=== PATIENT | female | born 1955 | race Caucasian/White ===

== ENCOUNTER → 2016-07-09 | Outpatient (CLI) | payer BC ==
[~2016-07-09] MED LIST: ASPEC325 PO; FLUO20CA35 PO; FRRG PO; IRON PO; LISI-461 PO; MULT-506 PO; MULT-580 PO; PRD/1 PO; PRLSR20 PO; VITAMIN B12 INJ
--- NOTE | 2016-07-09 16:32 | MAMMOGRAPHY REPORT ---
BILATERAL DIGITAL SCREENING MAMMOGRAM TOMOSYNTHESIS WITH CAD: 07/09/2016 CLINICAL HISTORY: Routine screening. Patient has no complaints. TECHNIQUE: Breast tomosynthesis in addition to standard 2D mammography was performed. Current study was also evaluated with a Computer Aided Detection (CAD) system. COMPARISON: Comparison is made to exams dated: 07/06/2015 mammogram, 03/23/2012 mammogram, 03/22/2011 mammogram, 02/09/2010 mammogram - [facility], 02/06/2009, and 02/03/2008. BREAST COMPOSITION: There are scattered areas of fibroglandular density in both breasts. FINDINGS: There are post surgical changes in the breasts, with scattered stable punctate microcalcif ications and coarse benign rim calcifications. No new suspicious mass, architectural distortion or cluster of microcalcifications is seen. IMPRESSION: ACR BI-RADS CATEGORY 1: NEGATIVE There is no mammographic evidence of malignancy. A 1 year screening mammogram is recommended. The p atient will receive written notification of the results. Approximately 10% of breast cancers are not detected with mammography. A negative mammographic repor t should not delay biopsy if a clinically suggestive mass is present. Tiffanie Ireland M.D. ay/:07/09/2016 15:18:30 Document Reviewer: Rowan ARGUETA(Viji)(Rajni), [facility] letter sent: Normal 1/2 BI-RADS Code: ACR BI-RADS Category 1: Negative
== END | disposition home or self-care (01) ==
LOC: C.MAMM 10:46
PROVIDERS: ATTEND Internal Medicine
DX: Z12.31 Encounter for screening mammogram for malignant neoplasm of breast (principal)

== ENCOUNTER → 2016-08-05 | Outpatient (CLI) | payer BC, OTHER ==
[2016-08-05 14:38] LABS: BASO % 1.2 %; BASO ABS # 0.05 K/uL (0-0.2); COMPLETE YES; EOS % 4.2 %; HEMATOCRIT 39.2 % (37-47); IG% 0.2 %; LYMPH % 40.3 %; LYMPH ABS # 1.62 K/uL (1.2-3.4); MEAN CELL VOLUME 91.2 fL (80-100); MEAN CORPUSCULAR HEMOGLOBIN 29.3 pg (25-34); MEAN CORPUSCULAR HGB CONC 32.1 g/dl (32-36); MEAN PLATELET VOLUME 10.4 fL (7.4-10.4); MONO % 12.2 %; NEUT % 41.9 %; PLATELET COUNT 299 K/uL (130-400); WHITE BLOOD COUNT 4.02 K/uL (4.8-10.8)
[2016-08-05 15:20] LABS: ESTIMATED AVERAGE GLUCOSE 123 mg/dl; HA1C FLAG Normal (Normal)
[2016-08-05 17:20] LABS: BLOOD UREA NITROGEN 13 mg/dl (7-18); BUN/CREATININE RATIO 19.7 (10-20); CALCIUM 9.1 mg/dl (8.5-10.1); CARBON DIOXIDE 26 mmol/L (21-32); CHLORIDE 107 mmol/L (98-107); CREATININE 0.65 mg/dl (0.60-1.20); GLUCOSE 85 mg/dl (70-99); POTASSIUM 3.5 mmol/L (3.5-5.1); SODIUM 144 mmol/L (136-145)
[2016-08-05 17:33] LABS: ALB/GLOB RATIO 1.2 (0.9-2); ALKALINE PHOSPHATASE 66 U/L (45-117); ALT/SGPT 23 U/L (12-78); AST/SGOT 14 U/L (15-37); CHOLESTEROL 200 mg/dl (0-200); CHOLESTEROL/HDL RATIO 2.8; HDL CHOLESTEROL 72 mg/dl; TRIGLYCERIDES 124 mg/dl (0-150); VERY LOW DENSITY LIPOPROT CALC 25 mg/dl
== END | disposition home or self-care (01) ==
LOC: C.LABSPEC 12:17
PROVIDERS: ATTEND Internal Medicine
DX: M35.3 Polymyalgia rheumatica (principal); R73.9 Hyperglycemia, unspecified; I10 Essential (primary) hypertension; E78.5 Hyperlipidemia, unspecified; R53.83 Other fatigue

== ENCOUNTER → 2017-01-06 | Outpatient (CLI) | payer BC ==
[2017-01-06 14:42] LABS: BASO % 1.5 %; BASO ABS # 0.07 K/uL (0-0.2); COMPLETE YES; EOS % 4.9 %; HEMATOCRIT 41.2 % (37-47); IG% 0.2 %; LYMPH % 38.6 %; LYMPH ABS # 1.83 K/uL (1.2-3.4); MEAN CELL VOLUME 94.7 fL (80-100); MEAN CORPUSCULAR HGB CONC 32.8 g/dl (32-36); MEAN PLATELET VOLUME 10.6 fL (7.4-10.4); MONO % 9.3 %; NEUT % 45.5 %; PLATELET COUNT 274 K/uL (130-400); RED BLOOD COUNT 4.35 M/uL (4.2-5.4); WHITE BLOOD COUNT 4.74 K/uL (4.8-10.8)
[2017-01-06 14:55] LABS: ALT/SGPT 23 U/L (12-78); AST/SGOT 19 U/L (15-37); BLOOD UREA NITROGEN 10 mg/dl (7-18); BUN/CREATININE RATIO 16.9 (10-20); CALCIUM 9.1 mg/dl (8.5-10.1); CARBON DIOXIDE 26 mmol/L (21-32); CHLORIDE 110 mmol/L (98-107); CREATININE 0.61 mg/dl (0.60-1.20); GLUCOSE 87 mg/dl (70-99); POTASSIUM 3.8 mmol/L (3.5-5.1); SODIUM 144 mmol/L (136-145)
[2017-01-06 14:59] LABS: ALB/GLOB RATIO 1.1 (0.9-2); ALKALINE PHOSPHATASE 70 U/L (45-117); CHOLESTEROL 225 mg/dl (0-200); CHOLESTEROL/HDL RATIO 3.8; HDL CHOLESTEROL 59 mg/dl; TRIGLYCERIDES 155 mg/dl (0-150); VERY LOW DENSITY LIPOPROT CALC 31 mg/dl
== END | disposition home or self-care (01) ==
LOC: C.LABSPEC 11:15
PROVIDERS: ATTEND Internal Medicine
DX: I10 Essential (primary) hypertension (principal); E78.5 Hyperlipidemia, unspecified; M35.3 Polymyalgia rheumatica

== ENCOUNTER 2021-04-28 08:05 | Inpatient (IN) ==
[2021-04-28] MEDS ORDERED: ONDANSETRON INJ 2 MG/ML 2 ML VIAL IV STA (08:27)
[2021-04-28] MEDS ORDERED: HYDROmorphone INJ 0.5 MG/0.5 ML SYR IV STA (08:27)
--- NOTE | 2021-04-28 08:31 | Emergency Department Note ---
Impression & Plan Pulmonary embolism, Pulmonary infarction, Aortic stenosis ED Provider Note Name: POPPY SINGH Age: 65 Sex: F Arrives Via: Walk-In Informant: Patient, Daughter ED Provider: Segundo Potter MD Chief Complaint: Chest pain Impression: As Per Impressions Above Medical Decision Makin yr old female with history HTN, GERD, anxiety/depression, essential tremor arrives for evaluation of chest pain. Diagnosed with severe last week during heart cath with no significant CAD. She is uncomfortable appearing with pain from chest to right upper arm. EKG OK. CXR obtained and some atelectasis like findings bilaterally. Labs with significantly elevated Dimer. Given just had cath and 24 hours of symptoms seems unlikely ACS. Patient with right chest pain, sob, elevated dimer and recent catheterization. Given this rule out dissection indicated in addition to PE rule out. CT reveals acute PE with infarction without dissection. She is a bit hypoxic with small dose narcotics. Given history and findings I did consult hospitalist for there input whether hospitalization vs outpatient management. Prior Medical Record and Triage/Nursing Notes reviewed by Me Additional history obtained from chart Differentials:Reactive airway disease, pneumonia, pneumothorax, COPD, CHF, infections, cardiac ischemia, pulmonary embolism, musculoskeletal, gastrointestinal, as well as other pathologies. Vital Signs: reviewed and remarkable for HTN Interventions: saline lock, dilaudid 0.5mg iv Labs:Reviewed and remarkable for elevated dimer Imaging:See Below EKG:Per My Interpretation: Indication Chest pain: NSR 68 bpm, qtc 412. No Ectopy. No Ischemia. Compared to EKG 09/18/15, no significant changes. Cardiac/Tele Monitoring: Cardiac Monitoring: An Order was placed for continuous cardiac monitoring. The monitor shows a rate of 60 with a normal sinus rhythm. Consults:Dr Tanya ECHEVERRIA Hospitalist Plan: Disposition:Hospitalization. Condition: Good History of Present Illness:65 yr old female arrives for evaluation of chest pain. Patient notes history of aortic stenosis and recent cath revealing mild CAD without need for stenting. She is in process of setting up valve replacement. The last few months she has had significant issues with shortness of breath with exertion but otherwise denies significant symptoms. Yesterday morning she awoke with substernal upper chest pain. Gradually worsening. Radiates to back and right upper arm. Tylenol taken without relief. Exertion makes worse, rest makes better. No syncope, headache, neck pain, nausea, vomiting, fevers, chills, abdominal pain, back pain, urinary/bowel symptoms, leg swelling, nor other symptoms. This pain has never occured before. No history of CAD. No history smoking. No falls, trauma, injuries. Notes some bruising right forearm from heart cath last week. ROS: See above HPI for pertinent positives & negatives. A total of 10 systems reviewed and were otherwise negative. Past Medical History:See Below Past Surgical History:See Below Family History:See Below Social History:See Below Home Medications:See Below Allergies:See Below Vitals:Blood Pressure: 142/68, Pulse 67, RR 20, T 37.3C, O2 98% on RA Physical Exam: GENERAL: Patient is anxious/uncomfortable appearing and in mild distress. EYES: No scleral icterus, unremarkable pupils. ENT: Mucous membranes moist, no nasal congestion. NECK: No masses appreciated, nomeningismus, trachea is midline. RESPIRATORY: No dyspnea. Clear to auscultation and equal bilaterally. No wheeze, no rhonchi. CARDIOVASCULAR: Regular rate and rhythm.No rubs, gallops appreciated. S ystolic murmur GASTROINTESTINAL: Abdomen soft, non-tender, no peritonitis.Bowel sounds positive.No masses appreciated. BACK: No midline tenderness, no CVA tenderness EXTREMITIES: Normal motion all extremities, no cyanosis, no edema. NEUROLOGIC: Alert and oriented, no acute motor or sensory deficits, no focal weakness, cranial nerves grossly intact. SKIN: No rash, no jaundice, no diaphoresis. PSYCH: Appropriate GCS: 15 ED Course: Times/Reassessments: Much improved pain with IV pain meds. Breathing comfortably, agreeable to hospitalist evaluation Segundo Potter MD Past Med/Surg History Medical History (Updated 04/28/21 @ 11:45 by Segundo Potter MD) Anxiety Cardiac murmur Depression GERD (gastroesophageal reflux disease) Hypertension Macular degeneration RT EYE (LIMITED VISION) Osteoarthritis Urinary urgency Surgical History H/O gastric bypass History of anesthesia reaction DIFFICULTY BREATHING WITH TUBAL LIGATION "REQUIRED EPINEPHRINE" History of appendectomy History of bilateral breast reduction surgery History of bilateral tubal ligation History of bunionectomy RT/LEFT AND HAMMER TOE REPAIR History of cataract surgery RT History of colonoscopy History of tooth extraction History of total knee replacement RT/LEFT Family History Mother Family history of diabetes mellitus Father Family history of diabetes mellitus Sister Family history of diabetes mellitus Brother Family history of diabetes mellitus Grandmother Family history of diabetes mellitus Grandfather Family history of diabetes mellitus Social History Smoking Status: Never smoker Second Hand Exposure: Yes (Sister smoked many years ago.); Do You Dip or Chew Tobacco: No; Tobacco Cessation Education Requested by Patient: No Hx Alcohol Use: No Hx Substance Use: No Preferred Language: Georgian Communication Ability: Effective Cardiology Coordinator Required: No Beliefs That Will Affect Care: Christian Christian Beliefs: Baptism Current Living Situation: Alone Other Information That Helps Us Care for You: No Feels Safe at Home: Yes Safety Concerns: Feels Safe At This Time Assistive Devices: Glasses Allergies Allergies Allergy/AdvReac Type Severity Reaction Status Date / Time acetone Allergy Mild whole body Verified 04/28/21 08:52 rash adhesive Allergy Mild RASH, Verified 04/28/21 08:52 BLISTERS FROM THICK TAPE,BANDAIDS clarithromycin Allergy Mild GI Verified 04/28/21 08:52 SYMPTOMS,BLACKED OUT,DIARRHEA phenol Allergy Mild whole body Verified 04/28/21 08:52 rash resorcinol Allergy Mild whole body Verified 04/28/21 08:52 rash Basic Fuchsin Allergy Mild whole body Uncoded 04/28/21 08:52 rash CHEAP METALS AdvReac Mild ITCH Uncoded 04/28/21 08:52 Home Meds Home Medications Medication Instructions Recorded Confirmed biotin 5,000 mcg disintegrating 5,000 mcg PO QAM 05/26/18 04/28/21 tablet multivitamin (Daily Multi-Vitamin) 1 tab PO QAM 05/26/18 04/28/21 prednisone 5 mg tablet 5 mg PO QAM 05/26/18 04/28/21 fluoxetine 20 mg capsule (Prozac) 40 mg PO QAM cap 11/16/20 04/28/21 lisinopril 10 mg tablet 10 mg PO BID tab 11/16/20 04/28/21 omeprazole 20 mg tablet,delayed 20 mg PO QDL 11/16/20 04/28/21 release aspirin 81 mg tablet,delayed 81 mg PO QAM 04/28/21 04/28/21 release (Adult Aspirin Regimen) oxybutynin chloride 5 mg tablet 5 mg PO QDL 04/28/21 04/28/21 propranolol 60 mg capsule,24 60 mg PO QDL 04/28/21 04/28/21 hr,extended release Results & Data (ED) Vital Signs Vital Signs - 24 hr 04/28/21 08:05 04/28/21 08:17 04/28/21 08:21 Temperature 37.3 C Temperature Source Oral Pulse Rate 70 67 Pulse Rate [Finger] Pulse Rate from SpO2 Sensor Pulse Rhythm Regular Pulse Rhythm [Finger] Pulse Strength Normal Pulse Strength [Finger] Respiratory Rate 20 20 Respiratory Effort / Characteristics Non-Labored Spontaneous Respiratory Depth Normal Respiratory Pattern Regular Blood Pressure 142/84 H Blood Pressure [Left Arm] Blood Pressure Mean 103 Blood Pressure Mean [Left Arm] Blood Pressure Position Sitting Blood Pressure Position [Left Arm] Pulse Oximetry 98 94 Oxygen Delivery Method Room Air Room Air Oxygen Flow Rate Sepsis Recent Fever Within 48 Hours No Sepsis New/Unexplained Change in Mental Status No Sepsis Action Taken by Nursing No Action Required 04/28/21 08:30 04/28/21 09:00 04/28/21 09:30 Temperature Temperature Source Pulse Rate 67 60 57 L Pulse Rate [Finger] Pulse Rate from SpO2 Sensor 61 57 L Pulse Rhythm Pulse Rhythm [Finger] Pulse Strength Pulse Strength [Finger] Respiratory Rate 19 17 19 Respiratory Effort / Characteristics Respiratory Depth Respiratory Pattern Blood Pressure 197/108 H 142/82 H 152/72 H Blood Pressure [Left Arm] Blood Pressure Mean 137 102 98 Blood Pressure Mean [Left Arm] Blood Pressure Position Blood Pressure Position [Left Arm] Pulse Oximetry 97 96 Oxygen Delivery Method Oxygen Flow Rate Sepsis Recent Fever Within 48 Hours Sepsis New/Unexplained Change in Mental Status Sepsis Action Taken by Nursing 04/28/21 10:00 04/28/21 10:32 04/28/21 11:00 Temperature Temperature Source Pulse Rate 56 L 70 59 L Pulse Rate [Finger] Pulse Rate from SpO2 Sensor 59 L 60 Pulse Rhythm Pulse Rhythm [Finger] Pulse Strength Pulse Strength [Finger] Respiratory Rate 16 21 17 Respiratory Effort / Characteristics Respiratory Depth Respiratory Pattern Blood Pressure 130/54 L 133/63 Blood Pressure [Left Arm] Blood Pressure Mean 79 86 Blood Pressure Mean [Left Arm] Blood Pressure Position Blood Pressure Position [Left Arm] Pulse Oximetry 96 98 Oxygen Delivery Method Oxygen Flow Rate Sepsis Recent Fever Within 48 Hours Sepsis New/Unexplained Change in Mental Status Sepsis Action Taken by Nursing 04/28/21 11:30 04/28/21 12:00 04/28/21 12:53 Temperature Temperature Source Pulse Rate 57 L 57 L 61 Pulse Rate [Finger] Pulse Rate from SpO2 Sensor Pulse Rhythm Pulse Rhythm [Finger] Pulse Strength Pulse Strength [Finger] Respiratory Rate 16 16 26 H Respiratory Effort / Characteristics Respiratory Depth Respiratory Pattern Blood Pressure 119/57 L 119/60 127/67 Blood Pressure [Left Arm] Blood Pressure Mean 77 79 87 Blood Pressure Mean [Left Arm] Blood Pressure Position Blood Pressure Position [Left Arm] Pulse Oximetry 98 Oxygen Delivery Method Oxygen Flow Rate Sepsis Recent Fever Within 48 Hours Sepsis New/Unexplained Change in Mental Status Sepsis Action Taken by Nursing 04/28/21 13:47 04/28/21 14:00 Temperature 36.9 C Temperature Source Oral Pulse Rate 52 L Pulse Rate [Finger] 53 L Pulse Rate from SpO2 Sensor Pulse Rhythm Pulse Rhythm [Finger] Regular Pulse Strength Pulse Strength [Finger] Normal Respiratory Rate 16 18 Respiratory Effort / Characteristics SOB on Exertion Respiratory Depth Normal Respiratory Pattern Regular Blood Pressure 139/59 L Blood Pressure [Left Arm] 156/74 H Blood Pressure Mean Blood Pressure Mean [Left Arm] 101 Blood Pressure Position Blood Pressure Position [Left Arm] Semi-fowlers Pulse Oximetry 95 97 Oxygen Delivery Method Nasal Cannula Nasal Cannula Oxygen Flow Rate 2 2 Sepsis Recent Fever Within 48 Hours Sepsis New/Unexplained Change in Mental Status Sepsis Action Taken by Nursing Laboratory Data Result diagrams: 04/28/21 08:22 04/28/21 08:22 Lab Results 04/28/21 04/28/21 04/28/21 Range/Units 08:22 08:22 08:22 WBC 9.05 (4.8-10.8) K/uL RBC 4.18 L (4.2-5.4) M/uL Hgb 13.3 (12.0-16.0) g/dL Hct 39.4 (37-47) % MCV 94.3 (80-100) fL MCH 31.8 (25-34) pg MCHC 33.8 (32-36) g/dL RDW Std Deviation 45.8 (36.4-46.3) fL RDW Coeff of Arun 13.3 (11.5-14.5) % Plt Count 278 (130-400) K/uL MPV 10.0 (7.4-10.4) fL Immature Gran % (Auto) 0.0 % Neut % (Auto) 68.8 % Lymph % (Auto) 14.6 % [place] % (Auto) 14.0 % Eos % (Auto) 2.2 % Baso % (Auto) 0.4 % Neut # (Auto) 6.22 (1.4-6.5) K/uL Lymph # (Auto) 1.32 (1.2-3.4) K/uL [place] # (Auto) 1.27 H (0.11-0.59) K/uL Eos # (Auto) 0.20 (0-0.5) K/uL Baso # (Auto) 0.04 (0-0.2) K/uL Immature Gran # (Auto) 0.00 (0.00-0.02) K/uL PT (9.0-12.0) Seconds INR (0.9-1.1) APTT (21.0-31.0) Seconds PTT Ratio D-Dimer 2500 H* (0-500) ug/L FEU Sodium 138 (136-145) mmol/L Potassium 4.1 (3.5-5.1) mmol/L Chloride 104 (98-107) mmol/L Carbon Dioxide 28 (21-32) mmol/L Anion Gap 6.0 (3-11) BUN 9 (7-18) mg/dl Creatinine 0.59 L (0.6-1.2) mg/dl Est Cr Clr Drug Dosing 104.3 ml/min Est GFR ( Amer) 111.5 ml/min Est GFR (Non-Af Amer) 96.2 ml/min BUN/Creatinine Ratio 15.4 (10-20) Glucose 104 H (70-99) mg/dl Calcium 9.2 (8.5-10.1) mg/dl Magnesium 2.2 (1.8-2.4) mg/dl Total Bilirubin 1.2 H (0.2-1) mg/dl Direct Bilirubin 0.3 H (0-0.2) mg/dl AST 12 L (15-37) U/L ALT 17 (12-78) U/L Alkaline Phosphatase 72 (45-117) U/L Troponin I < 0.015 (0-0.045) ng/ml NT-Pro-B Natriuret Pep 463 (0-900) pg/ml Total Protein 7.3 (6.4-8.2) gm/dl Albumin 3.2 L (3.4-5.0) gm/dl Lipase 62 L (73-393) U/L COVID-19 Eval Order SARS-CoV-2 (PCR) (Negative) 04/28/21 04/28/21 04/28/21 Range/Units 08:22 08:53 08:53 WBC (4.8-10.8) K/uL RBC (4.2-5.4) M/uL Hgb (12.0-16.0) g/dL Hct (37-47) % MCV (80-100) fL MCH (25-34) pg MCHC (32-36) g/dL RDW Std Deviation (36.4-46.3) fL RDW Coeff of Arun (11.5-14.5) % Plt Count (130-400) K/uL MPV (7.4-10.4) fL Immature Gran % (Auto) % Neut % (Auto) % Lymph % (Auto) % [place] % (Auto) % Eos % (Auto) % Baso % (Auto) % Neut # (Auto) (1.4-6.5) K/uL Lymph # (Auto) (1.2-3.4) K/uL [place] # (Auto) (0.11-0.59) K/uL Eos # (Auto) (0-0.5) K/uL Baso # (Auto) (0-0.2) K/uL Immature Gran # (Auto) (0.00-0.02) K/uL PT 10.6 (9.0-12.0) Seconds INR 1.0 (0.9-1.1) APTT 28.2 (21.0-31.0) Seconds PTT Ratio 1.1 D-Dimer (0-500) ug/L FEU Sodium (136-145) mmol/L Potassium (3.5-5.1) mmol/L Chloride (98-107) mmol/L Carbon Dioxide (21-32) mmol/L Anion Gap (3-11) BUN (7-18) mg/dl Creatinine (0.6-1.2) mg/dl Est Cr Clr Drug Dosing ml/min Est GFR ( Amer) ml/min Est GFR (Non-Af Amer) ml/min BUN/Creatinine Ratio (10-20) Glucose (70-99) mg/dl Calcium (8.5-10.1) mg/dl Magnesium (1.8-2.4) mg/dl Total Bilirubin (0.2-1) mg/dl Direct Bilirubin (0-0.2) mg/dl AST (15-37) U/L ALT (12-78) U/L Alkaline Phosphatase (45-117) U/L Troponin I (0-0.045) ng/ml NT-Pro-B Natriuret Pep (0-900) pg/ml Total Protein (6.4-8.2) gm/dl Albumin (3.4-5.0) gm/dl Lipase (73-393) U/L COVID-19 Eval Order Covid19 at [facility] SARS-CoV-2 (PCR) NEGATIVE (Negative) Administered Medications Acetaminophen (Acetaminophen 325 Mg Tab) 650 mg PO Q6H DAFNE Stop: 05/28/21 13:59 Last Admin: 04/28/21 13:28 Dose: 650 mg Documented by: [id number] Enoxaparin Sodium (Enoxaparin 150 Mg/Ml Syr) 141 mg SQ Q24H DAFNE Stop: 05/28/21 12:29 Last Admin: 04/28/21 13:33 Dose: 141 mg Documented by: [id number] Lidocaine (Lidocaine 5% 1 Patch) 1 patch TD QAM DAFNE Stop: 05/28/21 13:29 Last Admin: 04/28/21 13:41 Dose: 1 patch Documented by: [id number] Discontinued Medications Hydromorphone HCl (Hydromorphone Inj 0.5 Mg/0.5 Ml Syr) 0.5 mg IV NOW STA Stop: 04/28/21 08:28 Last Admin: 04/28/21 08:32 Dose: 0.5 mg Documented by: [id number] Ioversol (Optiray 320 125ml) 118 ml IV ONCE ONE Stop: 04/28/21 10:26 Last Admin: 04/28/21 10:31 Dose: 118 ml Documented by: [id number] Ondansetron HCl (Ondansetron Inj 2 Mg/Ml 2 Ml Vial) 4 mg IV NOW STA Stop: 04/28/21 08:28 Last Admin: 04/28/21 08:32 Dose: 4 mg Documented by: [id number] Imaging Data Radiologist's Impression: Chest X-Ray 04/28/21 08:27 XR chest 1V portable CLINICAL HISTORY: Atypical chest pain. COMPARISON STUDY: Chest radiograph October 06, 2020. FINDINGS: Lung volumes are mildly diminished. There is no pneumothorax or pleural effusion. Mild left basilar opacity is present. Linear bilateral opacities are noted. These favor atelectasis. Cardiac size is normal. There is no evidence for pulmonary edema. Linear left midlung opacity is also noted. IMPRESSION: 1. Mild left basilar opacity which may reflect an infectious process or atelectasis. Additional bilateral linear opacities favor atelectasis. 2. No evidence for pulmonary edema. ACT 112: Negative or not required by law. Electronically signed by: Cholo Barrientos M.D. 04/28/2021 9:26 AM Chest CTA 04/28/21 09:15 CT ANGIOGRAPHY OF THE CHEST DISSECTION PROTOCOL CLINICAL HISTORY: Chest pain radiating to right shoulder status post ca theterization. COMPARISON STUDY: Chest radiograph October 06, 2020 and April 28, 2021. TECHNIQUE: Before and following the IV administration of 118 mL of Optiray, helical axial images of the chest were obtained. Maximal intensity projections and sagittal and coronal reformats were viewed on an independent 3D workstation. IV contrast was administered without complication. Automated exposure control was utilized for the study. A dose lowering technique was utilized adhering to the principles of ALARA. CT DOSE: 986.53 mGy.cm FINDINGS: The caliber of the thoracic aorta is normal. There is no thoracic aortic dissection or intramural hematoma. Extensive aortic valvular calcification is noted. Mild cardiomegaly is present. There is moderate coronary artery calcification. No pericardial effusion is present. A small right pleural effusion is noted. There is a segmental pulmonary embolus within the posterior basal segment of the right lower lobe. Associated ground glass opacity represe nts a pulmonary infarct which measures 4.5 cm in extent. Additional linear opacities within the lungs reflect atelectasis. No additional pulmonary emboli are identified. No thoracic aortic dissection. No acute fracture or suspicious lesion is identified within the bony thorax. Postoperative findings consistent with Arleen-en-Y gastric bypass are partially visualized within the upper abdomen. IMPRESSION: 1. Segmental pulmonary embolus within the posterior basal segment of the right lower lobe with associated right lower lobe pulmonary infarct and a small right pleural effusion. 2. No thoracic aortic dissection. 3. Extensive aortic valvular calcification. 4. Cardiomegaly. ACT 112: Negative or not required by law. Electronically signed by: Cholo Barrientos M.D. 04/28/2021 10:49 AM Venous Doppler Study 04/28/21 12:02 BILATERAL LOWER EXTREMITY VENOUS DOPPLER CLINICAL HISTORY: PULMONARY EMBOLI COMPARISON STUDY: No previous studies for comparison. TECHNIQUE: Sonography of the deep venous system of the bilateral lower extremities was performed. Compression and augmentation were evaluated. FINDINGS: The bilateral common femoral, superficial femoral and popliteal veins were compressible. Augmentation was normal. Flow was shown within the deep calf vessels. IMPRESSION: No evidence of deep venous thrombus within the bilateral lower extremities. ACT 112: Negative or not required by law. Electronically signed by: Cholo Barrientos M.D. 04/28/2021 12:48 PM Discharge Plan Visit Data Chief Complaint: Chest Pain Stated Complaint: CHEST PAIN ED Provider: Segundo Potter Discharge Problem: Pulmonary embolism, Pulmonary infarction, Aortic stenosis Patient Disposition: Admitted As Inpatient Discharge Instructions Interventions: ED Discharge Assessment Last Done: 04/28/21 13:47 Discharge Problem: Pulmonary embolism Qualifiers: Pulmonary embolism type: single subsegmental (without acute cor pulmonale) Qualified Code(s): I26.93 - Single subsegmental pulmonary embolism without acute cor pulmonale Aortic stenosis Qualifiers: Cardiac valve disease etiology: nonrheumatic Qualified Code(s): I35.0 - Nonrheumatic aortic (valve) stenosis
[2021-04-28 08:43] LABS: Basophils # (auto) 0.04 K/uL (0-0.2); Basophils % (auto) 0.4 %; Eosinophils % (auto) 2.2 %; Hematocrit (blood only) 39.4 % (37-47); Hemoglobin 13.3 g/dL (12.0-16.0); Lymphocytes # (auto) 1.32 K/uL (1.2-3.4); Lymphocytes % (auto) 14.6 %; Mean Corpuscular Hemoglobin 31.8 pg (25-34); Mean Corpuscular Hgb Conc 33.8 g/dL (32-36); Mean Corpuscular Volume 94.3 fL (80-100); Monocytes # (auto) 1.27 K/uL (0.11-0.59); Neutrophils # (auto) 6.22 K/uL (1.4-6.5); Neutrophils % (auto) 68.8 %; Platelet Count 278 K/uL (130-400); RDW Coefficient of Variation 13.3 % (11.5-14.5); RDW Standard Deviation 45.8 fL (36.4-46.3); Red Blood Count 4.18 M/uL (4.2-5.4); White Blood Count 9.05 K/uL (4.8-10.8)
[2021-04-28 09:00] LABS: Alanine Aminotransferase 17 U/L (12-78); Albumin Level 3.2 gm/dl (3.4-5.0); Aspartate Aminotransferase 12 U/L (15-37); BUN Creatinine Ratio 15.4 (10-20); Bilirubin Direct 0.3 mg/dl (0-0.2); Blood Urea Nitrogen 9 mg/dl (7-18); Calcium 9.2 mg/dl (8.5-10.1); Carbon Dioxide 28 mmol/L (21-32); Chloride 104 mmol/L (98-107); Creatinine Clr Calc Pharmacy 104.3 ml/min; Est GFR (African American) 111.5 ml/min; Est GFR (Non-African American) 96.2 ml/min; Glucose 104 mg/dl (70-99); Lipase 62 U/L (73-393); Magnesium 2.2 mg/dl (1.8-2.4); Potassium 4.1 mmol/L (3.5-5.1); Sodium 138 mmol/L (136-145)
[2021-04-28 09:06] LABS: Alkaline Phosphatase 72 U/L (45-117); Bilirubin,Total 1.2 mg/dl (0.2-1); NT Pro B Type Natriuretic Pept 463 pg/ml (0-900); Total Protein 7.3 gm/dl (6.4-8.2); Troponin I < 0.015 ng/ml (0-0.045)
[2021-04-28 09:10] LABS: D Dimer 2500 ug/L FEU (0-500)
--- NOTE | 2021-04-28 09:27 | XRay Report ---
XR chest 1V portable CLINICAL HISTORY: Atypical chest pain. COMPARISON STUDY: Chest radiograph October 06, 2020. FINDINGS: Lung volumes are mildly diminished. There is no pneumothorax or pleural effusion. Mild left basilar opacity is present. Linear bilateral opacities are noted. These favor atelectasis. Cardiac s ize is normal. There is no evidence for pulmonary edema. Linear left midlung opacity is also noted. IMPRESSION: 1. Mild left basilar opacity which may reflect an infectious process or atelectasis. Additional bilat eral linear opacities favor atelectasis. 2. No evidence for pulmonary edema. ACT 112: Negative or not required by law. Electronically signed by: Cholo Barrientos M.D. 04/28/2021 9:26 AM
[2021-04-28] MEDS ORDERED: OPTIRAY 320 125ml IV ONE (10:25)
--- NOTE | 2021-04-28 10:51 | CT Scan Report ---
CT ANGIOGRAPHY OF THE CHEST DISSECTION PROTOCOL CLINICAL HISTORY: Chest pain radiating to right shoulder status post catheterization. COMPARISON STUDY: Chest radiograph October 06, 2020 and April 28, 2021. TECHNIQUE: Before and following the IV administration of 118 mL of Optiray, helical axial images of t he chest were obtained. Maximal intensity projections and sagittal and coronal reformats were viewed on an independent 3D workstation. IV contrast was administered without complication. Automated exp osure control was utilized for the study. A dose lowering technique was utilized adhering to the [facility] of [place]. CT DOSE: 986.53 mGy.cm FINDINGS: The caliber of the thoracic aorta is normal. There is no thoracic aortic dissection or int ramural hematoma. Extensive aortic valvular calcification is noted. Mild cardiomegaly is present. The re is moderate coronary artery calcification. No pericardial effusion is present. A small right pleur al effusion is noted. There is a segmental pulmonary embolus within the posterior basal segment of th e right lower lobe. Associated ground glass opacity represents a pulmonary infarct which measures 4.5 cm in extent. Additional linear opacities within the lungs reflect atelectasis. No additional pulmon felipe emboli are identified. No thoracic aortic dissection. No acute fracture or suspicious lesion is i dentified within the bony thorax. Postoperative findings consistent with Arleen-en-Y gastric bypass are partially visualized within the upper abdomen. IMPRESSION: 1. Segmental pulmonary embolus within the posterior basal segment of the right lower lobe with associ ated right lower lobe pulmonary infarct and a small right pleural effusion. 2. No thoracic aortic dissection. 3. Extensive aortic valvular calcification. 4. Cardiomegaly. ACT 112: Negative or not required by law. Electronically signed by: Cholo Barrientos M.D. 04/28/2021 10:49 AM
[2021-04-28 10:58] LABS: Partial Thromboplastin Ratio 1.1; Partial Thromboplastin Time 28.2 Seconds (21.0-31.0); Prothrombin Time 10.6 Seconds (9.0-12.0)
--- NOTE | 2021-04-28 12:49 | Ultrasound Report ---
BILATERAL LOWER EXTREMITY VENOUS DOPPLER CLINICAL HISTORY: PULMONARY EMBOLI COMPARISON STUDY: No previous studies for comparison. TECHNIQUE: Sonography of the deep venous system of the bilateral lower extremities was performed. Co mpression and augmentation were evaluated. FINDINGS: The bilateral common femoral, superficial femoral and popliteal veins were compressible. A ugmentation was normal. Flow was shown within the deep calf vessels. IMPRESSION: No evidence of deep venous thrombus within the bilateral lower extremities. ACT 112: Negative or not required by law. Electronically signed by: Cholo Barrientos M.D. 04/28/2021 12:48 PM
--- NOTE | 2021-04-28 13:25 | History & Physical Report ---
Date of Service April 28, 2021 Assessment & Plan (1) Pulmonary embolism: Plan: Will admit to med/surg tele vitals appear stable Will place on lovenox. Admitted due to pain, will place on lidocaine. (2) Pulmonary infarction: Plan: anticoag and pain control as above (3) Aortic stenosis: Plan: Plan for TAVR at [place] in May (4) Hypertension: Plan: resume home meds (5) GERD (gastroesophageal reflux disease): Plan: controlled. will place on home meds (6) Depression: Plan: controlled will place on home meds History of Present Illness Chief Complaint: chest pain Primary Care Provider: Andrew Briceno MD 65 yo female with H/O hypertension, severe aortic stenosis, GERD, anxiety/depression, essential tremor presents with sharp right sided constant chest pain. Chest pain radiates to the right shoulder. Patient reports she has been more sedentary ever since her and sister this past year. When patient arrived in the ER, CT chest was ordered which showed a PE with infarction without dissection. Allergies Allergy/AdvReac Type Severity Reaction Status Date / Time acetone Allergy Mild whole body Verified 04/28/21 08:52 rash adhesive Allergy Mild RASH, Verified 04/28/21 08:52 BLISTERS FROM THICK TAPE,BANDAIDS clarithromycin Allergy Mild GI Verified 04/28/21 08:52 SYMPTOMS,BLACKED OUT,DIARRHEA phenol Allergy Mild whole body Verified 04/28/21 08:52 rash resorcinol Allergy Mild whole body Verified 04/28/21 08:52 rash Basic Fuchsin Allergy Mild whole body Uncoded 04/28/21 08:52 rash CHEAP METALS AdvReac Mild ITCH Uncoded 04/28/21 08:52 Home Medications Medication Instructions Recorded Confirmed Type biotin 5,000 mcg disintegrating 5,000 mcg PO QAM 05/26/18 04/28/21 History tablet multivitamin (Daily Multi-Vitamin) 1 tab PO QAM 05/26/18 04/28/21 History prednisone 5 mg tablet 5 mg PO QAM 05/26/18 04/28/21 History fluoxetine 20 mg capsule (Prozac) 40 mg PO QAM cap 11/16/20 04/28/21 History lisinopril 10 mg tablet 10 mg PO BID tab 11/16/20 04/28/21 History omeprazole 20 mg tablet,delayed 20 mg PO QDL 11/16/20 04/28/21 History release aspirin 81 mg tablet,delayed 81 mg PO QAM 04/28/21 04/28/21 History release (Adult Aspirin Regimen) oxybutynin chloride 5 mg tablet 5 mg PO QDL 04/28/21 04/28/21 History propranolol 60 mg capsule,24 60 mg PO QDL 04/28/21 04/28/21 History hr,extended release Past Med/Surg History Medical History (Updated 04/28/21 @ 21:26 by David Martínez) Anxiety Cardiac murmur Depression GERD (gastroesophageal reflux disease) Hypertension Macular degeneration RT EYE (LIMITED VISION) Osteoarthritis Urinary urgency Surgical History H/O gastric bypass History of anesthesia reaction DIFFICULTY BREATHING WITH TUBAL LIGATION "REQUIRED EPINEPHRINE" History of appendectomy History of bilateral breast reduction surgery History of bilateral tubal ligation History of bunionectomy RT/LEFT AND HAMMER TOE REPAIR History of cataract surgery RT History of colonoscopy History of tooth extraction History of total knee replacement RT/LEFT Family History Mother Family history of diabetes mellitus Father Family history of diabetes mellitus Sister Family history of diabetes mellitus Brother Family history of diabetes mellitus Grandmother Family history of diabetes mellitus Grandfather Family history of diabetes mellitus Social History Smoking Status: Never smoker Second Hand Exposure: Yes (Sister smoked many years ago.); Do You Dip or Chew Tobacco: No; Tobacco Cessation Education Requested by Patient: No Hx Alcohol Use: No Hx Substance Use: No Preferred Language: Montserratian Communication Ability: Effective Wild Life Manager Required: No Beliefs That Will Affect Care: Hindu Hindu Beliefs: Gnosticism Current Living Situation: Alone Other Information That Helps Us Care for You: No Feels Safe at Home: Yes Safety Concerns: Feels Safe At This Time Assistive Devices: Oxygen - Continuous Review of Systems Constitutional: no fever and no sweats Eyes: no dry eyes Ear, Nose, Mouth, Throat: no ear pain and no ear trauma Respiratory: + dyspnea; no cough and no change in sputum Cardiovascular: + chest pain; no radiating jaw, neck or arm pain Gastrointestinal: no abdominal pain and no bloating Genitourinary: no dysuria Musculoskeletal: no back pain Integumentary: no acne and no rash Neurologic: no gait abnormality and no falls Psychiatric: no behavioral changes and no hopelessness Endocrine: no polydipsia and no polyphagia Hematologic / Lymphatic: no easy bleeding and no coagulopathy Allergy / Immunological: no GI upset with certain foods Physical Exam Constitutional: WD/WN, vitals as above Eyes: PERRL, conjunctivae normal, anicteric sclerae ENMT: external ear and nose normal, oropharynx normal Neck: trachea midline, no thyromegaly Respiratory: normal respiratory effort, lungs clear to auscultation Cardiovascular: RRR, no murmur, no edema (except for loud systolic aortic mu rmur) Gastrointestinal (Abdomen): normal bowel sounds, soft, nontender, no hepatosplenomegaly Musculoskeletal: no cyanosis or clubbing, extremities motor strength 5/5 Skin: no rashes, warm and dry Neurologic: PERRL, EOMI, accommodation nl, no face palsy, no dysarthria Lymphatic: no cervical or axillary lymphadenopathy Results & Data Results & Data ([facility]) Vital Signs (Past 12 Hours) Vital Signs Temp Pulse Resp BP Pulse Ox 04/28/21 12:53 61 26 H 127/67 04/28/21 12:00 57 L 16 119/60 04/28/21 11:30 57 L 16 119/57 L 98 04/28/21 11:00 59 L 17 98 04/28/21 10:32 70 21 133/63 04/28/21 10:00 56 L 16 130/54 L 96 04/28/21 09:30 57 L 19 152/72 H 96 04/28/21 09:00 60 17 142/82 H 97 04/28/21 08:30 67 19 197/108 H 04/28/21 08:21 67 20 04/28/21 08:17 37.3 C 70 20 142/84 H 94 04/28/21 08:05 98 PG Care Time/CCT Total # of Minutes Spent Total Time Spent with Patient: Total time spent is greater than 50% in coordination of care (as documented) at patient's floor/unit and/or counseling patient: Coding Level of Care Code 28259 Initial Inpt Care Lvl 3 Diagnoses Pulmonary embolism I26.93 Pulmonary embolism type: single subsegmental (without acute cor pulmonale) Pulmonary infarction I26.99 Aortic stenosis I35.0 Cardiac valve disease etiology: nonrheumatic Hypertension I10 GERD (gastroesophageal reflux disease) K21.9 Depression F32.9 (1) Pulmonary embolism Pulmonary embolism type: single subsegmental (without acute cor pulmonale) Qualified Code(s): I26.93 - Single subsegmental pulmonary embolism without acute cor pulmonale (2) Aortic stenosis Cardiac valve disease etiology: nonrheumatic Qualified Code(s): I35.0 - Nonrheumatic aortic (valve) stenosis
[2021-04-28] MEDS: ACETAMINOPHEN 325 MG TAB PO SCH ×2 (13:28→19:28)
[2021-04-28] MEDS: ENOXAPARIN 150 MG/ML SYR SQ SCH (13:33)
[2021-04-28] MEDS: LIDOCAINE 5% 1 PATCH TD SCH (13:41)
--- NOTE | 2021-04-28 14:12 | Electrocardiogram Report ---
Test Reason : Blood Pressure : / mmHG Vent. Rate : 068 BPM Atrial Rate : 068 BPM P-R Int : 144 ms QRS Dur : 078 ms QT Int : 388 ms P-R-T Axes : 013 -07 017 degrees QTc Int : 412 ms Normal sinus rhythm Moderate voltage criteria for LVH, may be normal variant Borderline ECG When compared with ECG of 18-SEP-2015 12:43, No significant change was found Confirmed by Piotr Quinn ([id number]) on 04/28/2021 2:12:05 PM Referred By: Confirmed By:Piotr Quinn
[2021-04-28 16:15] LABS: Appearance Urine Clear (Clear); Bilirubin Urine 1+ (Negative); Blood Urine Negative (Negative); Color Urine Dark Yellow; Glucose Urine UA Negative (Negative); Ketones Urine Trace (Negative); Leukocyte Esterase Urine Negative (Negative); Nitrite Urine Negative (Negative); Protein Urine Negative (Negative); Specific Gravity Urine > 1.045 (1.000-1.030); Urobilinogen Urine Positive (Negative); pH Urine 5.5 (4.5-7.5)
[2021-04-28] MEDS: lisinopril 10 MG TAB PO SCH (22:16)
[2021-04-29] MEDS: ACETAMINOPHEN 325 MG TAB PO SCH ×4 (01:08→20:25)
[2021-04-29] MEDS: LIDOCAINE 5% 1 PATCH TD SCH (08:40)
[2021-04-29] MEDS: FLUoxetine HCL 20 MG CAP PO SCH (08:41)
[2021-04-29] MEDS: predniSONE 5 MG TAB PO SCH (08:41)
[2021-04-29] MEDS: MULTIVITAMIN TAB PO SCH (08:41)
[2021-04-29] MEDS: lisinopril 10 MG TAB PO SCH ×2 (08:41→20:26)
[2021-04-29] MEDS: ASPIRIN 81 MG ECTAB PO SCH (08:41)
[2021-04-29] MEDS ORDERED: NON-FORMULARY MEDICATION (Biotin 5,000 mcg Tablet,Disintegrating) PO SCH (09:00)
[2021-04-29] MEDS ORDERED: OXYBUTYNIN CHLORIDE 5 MG TAB PO SCH (11:30)
[2021-04-29] MEDS ORDERED: PROPRANOLOL HCL 60 MG LA CAP PO SCH (11:30)
[2021-04-29] MEDS ORDERED: PANTOprazole 40 MG TAB PO SCH (11:30)
[2021-04-29] MEDS: ENOXAPARIN 150 MG/ML SYR SQ SCH (12:07)
--- NOTE | 2021-04-29 15:29 | Hospitalist Progress Note ---
Date of Service April 29, 2021 Assessment & Plan (1) Pulmonary embolism: Plan: Had acute on chronic SOB and developed right sided chest pain with deep inspiration Found to have RLL segmental PE with infarct and small effusion on CTA Chest Dopplers neg for DVT trop and BNP negative hemodynamically stable admitted and started on Lovenox 1.5mg/kg q24h Xarelto will only cost $20/month--> start Xarelto 15mg po bid x 21 days then 20mg daily after that--> first dose to start Friday AM and will now dc Lovenox This may delay her TAVR-advised her to discuss with [facility] during scheduling of TAVR Splinting with pain--> add on tramadol to lidocaine patch and tylenol add incentive spirometry Still desats to mid 80s with ambulation in room but likely due to atelectasis as PE is not large -hopeful with IS and pain control, her POx will be better by Friday and won't need O2 (2) Pulmonary infarction: Plan: anticoag and pain control as above (3) Aortic stenosis: Plan: Severe Had cath last Friday with nonobstructive CAD no syncope or angina Plan for TAVR at [place] but has not been scheduled yet-Cardiology office sending referral and should be contacting her soon avoid hypotension continue home ASA, lisinopril, and propranolol with caution (4) Hypertension: Plan: as above, avoid hypotension but continue same meds from home (5) GERD (gastroesophageal reflux disease): Plan: continue PPI, no new symptoms has gastric bypass and is on daily ASA therapy (6) Depression: Plan: controlled recently lost her last year and then her sister ded 2 weeks ago but has support from friends -continue fluoxetine Plan: Dispo-continued stay for pain control and may need 2 step walk test prior to discharge hopeful for Friday Admission and Anticipated Discharge Date Admission Date: April 28, 2021 Subjective Pt still having pain in right side of chest with inspiration and states "I have decided I'll just only take shallow breaths." No fevers or cough, no chest pain otherwise. No h/o syncope or angina. Was told she needed to have her TAVR within 1 month since her cath 9 days ago but it has not yet been scheduled. Tele with NSR, rates 50-70s Review of Systems Review of Systems: All systems reviewed & are unremarkable except as noted in HPI & below Physical Exam Constitutional: WD/WN, vitals as above Eyes: + anicteric sclerae Neck: trachea midline, no thyromegaly Respiratory: normal respiratory effort, lungs clear to auscultation (with slightly decreased BS at bases) Cardiovascular: RRR, no murmur, no edema Chest (Breasts): Chest: normal inspection of chest Gastrointestinal (Abdomen): normal bowel sounds, soft, nontender, no hepatosplenomegaly Musculoskeletal: Extremities: extremities normal to inspection; no cyanosis and no clubbing Skin: no rashes, warm and dry Neurologic: moves all extremities and awake; no focal motor deficits Psychiatric: A+Ox3, euthymic affect Lymphatic: no lymphedema Results & Data Results & Data ([facility]) Vital Signs (Past 12 Hours) Vital Signs Temp Pulse Pulse Resp BP Pulse Ox 04/29/21 15:06 65 04/29/21 14:49 36.8 C 62 20 96/57 L 93 04/29/21 12:30 36.9 C 62 18 101/60 92 04/29/21 07:35 36.7 C 56 L 18 123/74 97 04/29/21 07:19 63 Laboratory Results 04/28/21 04/28/21 Range/Units 16:00 08:22 Urine Color Dark Yellow Urine Appearance Clear (Clear) Urine pH 5.5 (4.5-7.5) Ur Specific [place] > 1.045 H (1.000-1.030) Urine Protein Negative (Negative) Urine Glucose (UA) Negative (Negative) Urine Ketones Trace H (Negative) Urine Blood Negative (Negative) Urine Nitrite Negative (Negative) Urine Bilirubin 1+ H (Negative) Urine Urobilinogen Positive H (Negative) Ur Leukocyte Esterase Negative (Negative) Hepatitis C Ab Screen Pending PG Care Time/CCT Total # of Minutes Spent Total Time Spent with Patient: Total time spent is greater than 50% in coordination of care (as documented) at patient's floor/unit and/or counseling patient: Coding Level of Care Code 87056 Subseq Hosp Care Lvl 3 Diagnoses Pulmonary embolism I26.93 Pulmonary embolism type: single subsegmental (without acute cor pulmonale) Pulmonary infarction I26.99 Aortic stenosis I35.0 Cardiac valve disease etiology: nonrheumatic Hypertension I10 GERD (gastroesophageal reflux disease) K21.9 Depression F32.9 (1) Pulmonary embolism Pulmonary embolism type: single subsegmental (without acute cor pulmonale) Qualified Code(s): I26.93 - Single subsegmental pulmonary embolism without acute cor pulmonale (2) Aortic stenosis Cardiac valve disease etiology: nonrheumatic Qualified Code(s): I35.0 - Nonrheumatic aortic (valve) stenosis
[2021-04-29] MEDS: traMADol HCL 50 MG TABLET PO PRN (15:36)
[2021-04-30] MEDS: ACETAMINOPHEN 325 MG TAB PO SCH ×2 (01:55→08:18)
[2021-04-30 07:10] LABS: Basophils # (auto) 0.02 K/uL (0-0.2); Basophils % (auto) 0.3 %; Eosinophils # (auto) 0.14 K/uL (0-0.5); Eosinophils % (auto) 1.9 %; Hemoglobin 11.6 g/dL (12.0-16.0); Immature Granulocytes # (auto) 0.01 K/uL (0.00-0.02); Immature Granulocytes % (auto) 0.1 %; Lymphocytes # (auto) 1.24 K/uL (1.2-3.4); Mean Corpuscular Hemoglobin 31.6 pg (25-34); Mean Corpuscular Hgb Conc 33.1 g/dL (32-36); Mean Corpuscular Volume 95.4 fL (80-100); Mean Platelet Volume 9.9 fL (7.4-10.4); Monocytes # (auto) 0.99 K/uL (0.11-0.59); Monocytes % (auto) 13.6 %; Neutrophils % (auto) 67.1 %; Platelet Count 271 K/uL (130-400); RDW Standard Deviation 45.1 fL (36.4-46.3); Red Blood Count 3.67 M/uL (4.2-5.4)
[2021-04-30 07:41] LABS: BUN Creatinine Ratio 19.1 (10-20); Calcium 9.1 mg/dl (8.5-10.1); Est GFR (African American) 110.3 ml/min; Est GFR (Non-African American) 95.1 ml/min; Potassium 3.9 mmol/L (3.5-5.1)
[2021-04-30] MEDS: traMADol HCL 50 MG TABLET PO PRN (08:17)
[2021-04-30] MEDS: predniSONE 5 MG TAB PO SCH (08:18)
[2021-04-30] MEDS: lisinopril 10 MG TAB PO SCH (08:18)
[2021-04-30] MEDS: ASPIRIN 81 MG ECTAB PO SCH (08:18)
[2021-04-30] MEDS: LIDOCAINE 5% 1 PATCH TD SCH (08:18)
[2021-04-30] MEDS: MULTIVITAMIN TAB PO SCH (08:18)
[2021-04-30] MEDS: FLUoxetine HCL 20 MG CAP PO SCH (08:18)
[2021-04-30] MEDS ORDERED: RIVAROXABAN 15 MG TAB PO SCH (09:00)
--- NOTE | 2021-04-30 09:17 | Discharge Summary ---
Date of Service April 30, 2021 Admission HPI Per Admitting Provider 65 yo female with H/O hypertension, severe aortic stenosis, GERD, anxiety/depression, essential tremor presents with sharp right sided constant chest pain. Chest pain radiates to the right shoulder. Patient reports she has been more sedentary ever since her and sister this past year. When patient arrived in the ER, CT chest was ordered which showed a PE with infarction without dissection. Principal Diagnosis Pulmonary embolism Discharge Exam Constitutional WD/WN, vitals as above Eyes EOM intact bilaterally; no conjunctival abnormality ENMT external ear and nose normal, oropharynx normal Neck trachea midline, no thyromegaly normal visual inspection Respiratory normal respiratory effort, lungs clear to auscultation no respiratory distress Cardiovascular RRR, no murmur, no edema Gastrointestinal (Abdomen) Inspection/Auscultation: abdomen normal to inspection; abdomen not distended Musculoskeletal no cyanosis or clubbing, extremities motor strength 5/5 Skin no rashes, warm and dry Neurologic moves all extremities and awake Psychiatric Orientation: alert, oriented to person and cooperative Discharge Data Allergies Allergy/AdvReac Type Severity Reaction Status Date / Time acetone Allergy Mild whole body Verified 04/28/21 08:52 rash adhesive Allergy Mild RASH, Verified 04/28/21 08:52 BLISTERS FROM THICK TAPE,BANDAIDS clarithromycin Allergy Mild GI Verified 04/28/21 08:52 SYMPTOMS,BLACKED OUT,DIARRHEA phenol Allergy Mild whole body Verified 04/28/21 08:52 rash resorcinol Allergy Mild whole body Verified 04/28/21 08:52 rash Basic Fuchsin Allergy Mild whole body Uncoded 04/28/21 08:52 rash CHEAP METALS AdvReac Mild ITCH Uncoded 04/28/21 08:52 Consultations 04/28/21 10:47 ED Decision to Admit Stat Ordered Studies 04/28/21 09:15 CT angio chest dissec wo/w con Stat 04/28/21 12:02 US venous doppler LE Routine Hospital Course (1) Pulmonary embolism: Had acute on chronic SOB and developed right sided chest pain with deep inspiration Found to have RLL segmental PE with infarct and small effusion on CTA Chest Dopplers neg for DVT Xarelto will only cost $20/month--> start Xarelto 15mg po bid x 21 days then 20mg daily after that--> first dose to start Friday AM. -> Pain controlled on discharge. On room air. Feels ready for dc. (2) Pulmonary infarction: anticoag and pain control as above (3) Aortic stenosis: Severe Had cath last Friday with non-obstructive CAD. no syncope or angina Plan for TAVR at [place] but has not been scheduled yet-Cardiology office sending referral and should be contacting her soon - Continue home ASA, lisinopril, and propranolol with caution. BP stable while inpatient. (4) Hypertension: as above, avoid hypotension but continue same meds from home (5) GERD (gastroesophageal reflux disease): continue PPI, no new symptoms has gastric bypass and is on daily ASA therapy (6) Depression: controlled recently lost her last year and then her sister ded 2 weeks ago but has support from friends -continue fluoxetine Dispo-continued stay for pain control and may need 2 step walk test prior to discharge hopeful for Friday Total Time Total Time Spent Total Time Spent (In Minutes): 35 Discharge Plan Discharge Items Patient Disposition: Home - Self-Care Reason For Visit: PULMONARY EMBOLISM Discharge Diagnosis: Pulmonary embolism Activity: Resume your previous activity Non-emergency contact: Primary Care Provider Call non-emergency contact if: your symptoms worsen and your pain is not controlled Follow-up/Referrals: Andrew Briceno MD [Primary Care Provider] - Diet: Regular Addtl Attending Provider Instructions: Ms. Cabello, You were admitted with a blood clots in the lungs. We did a blood thinner which is helping dissolve the clot. Please take this twice a day for the first 3 weeks, then you switch to once a day dosing (with a very slightly higher dose (20 mg)). Please talk with your cardiology team about the timing of your TAVR. They may need you to hold your Xarelto for a few days prior to the procedure, but I am not sure if they will need to. Please see Dr. Briceno this week or next to be sure you are doing well. Pending Studies at Discharge: No Stand-Alone Forms: My [facility] [place], Smoking Cessation Medications and DC Order Prescriptions: New rivaroxaban 15 mg (42)- 20 mg (9) tablets,dose pack See Rx Instructions .ROUTE .COMPLEX Qty: 51 RF: 0 tramadol 50 mg Tablet 50 mg PO TID PRN (Reason: pain) Qty: 10 RF: 0 lidocaine 5 % Adhesive Patch,Medicated 1 patch transdermal QAM PRN (Reason: pain) Qty: 1 RF: 0 Continued fluoxetine [Prozac] 20 mg capsule 40 mg PO QAM RF: 0 omeprazole 20 mg tablet,delayed release (DR/EC) 20 mg PO QDL RF: 0 multivitamin [Daily Multi-Vitamin] Tablet 1 tab PO QAM RF: 0 prednisone 5 mg Tablet 5 mg PO QAM RF: 0 biotin 5,000 mcg Tablet,Disintegrating 5,000 mcg PO QAM RF: 0 lisinopril 10 mg tablet 10 mg PO BID RF: 0 propranolol 60 mg capsule,extended release 24 hr 60 mg PO QDL RF: 0 oxybutynin chloride 5 mg tablet 5 mg PO QDL RF: 0 aspirin [Adult Aspirin Regimen] 81 mg tablet,delayed release (DR/EC) 81 mg PO QAM RF: 0 Discharge Orders: Discharge Order (Routine); Ordered 04/30/21 Ordered By: Boogie Ulrich Admission Data Admit Date/Time: 04/28/21 14:05 Attending Provider: Boogie Ulrich Admit Provider: David Martínez Primary Care Provider: Andrew Briceno Other Providers: Boogie Ulrich Coding Level of Care Code D/C DAY MANAGEMENT >30 MINS Diagnoses Pulmonary embolism I26.93 Pulmonary embolism type: single subsegmental (without acute cor pulmonale) Pulmonary infarction I26.99 Aortic stenosis I35.0 Cardiac valve disease etiology: nonrheumatic Hypertension I10 GERD (gastroesophageal reflux disease) K21.9 Depression F32.9
== END 2021-04-30 10:10 | disposition home or self-care (01) | DRG 176 ==
LOC: ED 08:05 → 2N 13:47 → SUATTDRO 14:05

== ENCOUNTER 2022-04-15 08:06 | Observation (INO) ==
--- NOTE | 2022-03-08 11:41 | PAT Medication Instructions ---
Medication Instructions Date of Service March 08, 2022 Home Medications Medication Instructions Recorded lidocaine 5 % topical patch 1 patch transdermal QAM PRN pain 04/30/21 #1 ea tramadol 50 mg tablet 50 mg PO TID PRN pain #10 tabs 04/30/21 amoxicillin 500 mg tablet 2,000 mg PO ONCE #4 tabs 06/21/21 aspirin 81 mg tablet,delayed 81 mg PO QAM #90 tabs 07/13/21 release (Adult Aspirin Regimen) biotin 5,000 mcg disintegrating tablet 5,000 mcg PO QAM multivitamin (Daily Multi-Vitamin tablet) 1 tab PO QAM fluoxetine 20 mg capsule (Prozac) 40 mg PO QAM lisinopril 10 mg tablet 10 mg PO BID omeprazole 20 mg tablet,delayed release 20 mg PO QAM oxybutynin chloride 5 mg tablet 5 mg PO QAM lidocaine 5 % topical patch 1 patch transdermal QAM PRN tramadol 50 mg tablet 50 mg PO TID PRN amoxicillin 500 mg tablet 2,000 mg PO ONCE aspirin 81 mg tablet,delayed release (Adult Aspirin Regimen) 81 mg PO QAM ascorbic acid (vitamin C) 1,000 mg tablet (Vitamin C) 1 g PO QAM cyanocobalamin (vitamin B-12) 25 mcg tablet 25 mcg PO QAM prednisone 1 mg tablet 4 mg PO QAM propranolol 120 mg capsule,24 hr,extended release 120 mg PO QAM red yeast rice 600 mg tablet 1,200 mg PO QAM Continue as directed amoxicillin 500 mg tablet 2,000 mg PO ONCE prednisone 1 mg tablet 4 mg PO QAM STOP taking 2 weeks before surgery biotin 5,000 mcg disintegrating tablet 5,000 mcg PO QAM multivitamin (Daily Multi-Vitamin tablet) 1 tab PO QAM red yeast rice 600 mg tablet 1,200 mg PO QAM STOP taking 24 hours before surgery lidocaine 5 % topical patch 1 patch transdermal QAM PRN DO NOT take the morning of surgery lisinopril 10 mg tablet 10 mg PO BID oxybutynin chloride 5 mg tablet 5 mg PO QAM ascorbic acid (vitamin C) 1,000 mg tablet (Vitamin C) 1 g PO QAM cyanocobalamin (vitamin B-12) 25 mcg tablet 25 mcg PO QAM Take morning of surgery With a small sip of water, OTHERWISE NOTHING TO EAT OR DRINK AFTER MIDNIGHT: fluoxetine 20 mg capsule (Prozac) 40 mg PO QAM omeprazole 20 mg tablet,delayed release 20 mg PO QAM tramadol 50 mg tablet 50 mg PO TID PRN(if needed) aspirin 81 mg tablet,delayed release (Adult Aspirin Regimen) 81 mg PO QAM (unless directed otherwise by surgeon) propranolol 120 mg capsule,24 hr,extended release 120 mg PO QAM Take evening before surgery lisinopril 10 mg tablet 10 mg PO BID tramadol 50 mg tablet 50 mg PO TID PRN(if needed) Other Notes If you have any questions please call us at [phone] or [phone] or [phone] or [phone]
--- NOTE | 2022-03-18 11:01 | Anesthesiology Consultation ---
Date of Service March 18, 2022 Assessment & Plan (1) Encounter for pre-operative examination: - will attempt to obtain most recent cardiology note. - anesthesia record: DIFFICULTY BREATHING WITH TUBAL LIGATION-1984 "required epinephrine in recovery" pt unsure of cause/denies allergy or intubation; unsure if extended hospital stay. - pacemaker: [employer]. OR made aware of pacer rep. - s/p TAVR 07/19/21. - Outpatient joint assessment: Patient is currently scheduled for inpatient pathway. If re-evaluated pending system levels during current pandemic/surgeon requests outpatient pathway, patient is not recommended candidate for outpatient joint program from anesthesia standpoint. Pt vaccinated. Returned from Ezequiel Patel MD 02/16/22. Chart Review Chart Review: Pending: Refer to Additional Notes / Consult section and Patient seen in Pre Admission Testing Teaching & Discussion Pre-Anesthesia Teaching/Discussion Notes: Instructed NPO after midnight before surgery, except medications with 15 cc of water. Medication instructions provided according to the PAT guidelines. History Surgery Operation Date: 04/15/22 10:30 Proposed Procedures p Right Reverse Total Shoulder Arthroplasty - Dov Martinez, Height/Weight Height: 5 ft 4 in Weight: 88.9 kg Allergies Allergy/AdvReac Type Severity Reaction Status Date / Time acetone Allergy Mild whole body Verified 03/08/22 09:16 rash adhesive Allergy Mild RASH, Verified 03/08/22 09:16 BLISTERS FROM THICK TAPE,BANDAIDS clarithromycin Allergy Mild GI Verified 03/08/22 09:16 SYMPTOMS,BLACKED OUT,DIARRHEA phenol Allergy Mild whole body Verified 03/08/22 09:16 rash resorcinol Allergy Mild whole body Verified 03/08/22 09:16 rash Basic Fuchsin Allergy Mild whole body Uncoded 03/08/22 09:16 rash CHEAP METALS AdvReac Mild ITCH, rash Uncoded 03/18/22 11:17 Medications Home Medications Medication Instructions Recorded Confirmed Last Taken biotin 5,000 mcg disintegrating 5,000 mcg PO QAM 05/26/18 03/08/22 04/27/21 tablet multivitamin (Daily Multi-Vitamin 1 tab PO QAM 05/26/18 03/08/22 04/27/21 tablet) fluoxetine 20 mg capsule (Prozac) 40 mg PO QAM 11/16/20 03/08/22 04/27/21 lisinopril 10 mg tablet 10 mg PO BID 11/16/20 03/08/22 04/27/21 omeprazole 20 mg tablet,delayed 20 mg PO QAM 11/16/20 03/08/22 04/27/21 release oxybutynin chloride 5 mg tablet 5 mg PO QAM 04/28/21 03/08/22 04/27/21 lidocaine 5 % topical patch 1 patch transdermal QAM PRN pain 04/30/21 03/08/22 Unknown #1 ea tramadol 50 mg tablet 50 mg PO TID PRN pain #10 tabs 04/30/21 03/08/22 Unknown amoxicillin 500 mg tablet 2,000 mg PO ONCE #4 tabs 06/21/21 03/08/22 Unknown aspirin 81 mg tablet,delayed 81 mg PO QAM #90 tabs 07/13/21 03/08/22 Unknown release (Adult Aspirin Regimen) ascorbic acid (vitamin C) 1,000 mg 1 g PO QAM 03/08/22 03/08/22 Unknown tablet (Vitamin C) cyanocobalamin (vitamin B-12) 25 25 mcg PO QAM 03/08/22 03/08/22 Unknown mcg tablet prednisone 1 mg tablet 4 mg PO QAM 03/08/22 03/08/22 Unknown propranolol 120 mg capsule,24 120 mg PO QAM 03/08/22 03/08/22 Unknown hr,extended release red yeast rice 600 mg tablet 1,200 mg PO QAM 03/08/22 03/08/22 Unknown Past Medical History Medical History (Updated 03/18/22 @ 13:27 by Elina Quintana PA-C) Anxiety Bradycardia s/p pacemaker [employer] Cardiac murmur s/p TAVR 07/19/21 Depression Duodenal ulcer GERD (gastroesophageal reflux disease) controlled, stable per pt Hip problem hip abductor atrophy History of COVID-19 spring 2020, 's office, not hosp; sore throat, cough>resolved Hypertension controlled, stable per pt Macular degeneration RT EYE (LIMITED VISION) Mild pulmonary hypertension s/p TAVR, unable to estimate pressures on most recent echo per report Prediabetes Pulmonary embolism 04/2021, admit to [place]; no longer on blood thinners Urinary urgency Patient denies h/o stroke, seizures, heart attack, heart failure, or blood transfusions. Exercise / Class Metabolic Activity II 4-5 Yardwork/Stairs/Walk up hill (denies CP or SOB with 1 FOS) Past Family History Family History Mother Family history of diabetes mellitus Father Family history of diabetes mellitus Sister Family history of diabetes mellitus Brother Family history of diabetes mellitus Grandmother Family history of diabetes mellitus Grandfather Family history of diabetes mellitus Past Surgical History Surgical History (Updated 03/18/22 @ 11:23 by Elina Quintana PA-C) H/O aortic valve replacement 2021, [facility], bovine valve; f/u dr. elizondo and dr mitchell, [facility] H/O gastric bypass History of anesthesia reaction DIFFICULTY BREATHING WITH TUBAL LIGATION-1984 "required epinephrine in recovery" pt unsure of cause/denies allergy or intubation; unsure if extended hospital stay. History of appendectomy History of bilateral breast reduction surgery History of bilateral tubal ligation History of bunionectomy RT/LEFT AND HAMMER TOE REPAIR History of cataract surgery rt/lt History of colonoscopy History of tooth extraction History of total knee replacement RT/LEFT Hx of aortic valve replacement Hx of cardiac catheterization 04/2021, "due to shortness of breath, referred by her PCP",[facility], no stents; f/u Dr. Elizondo, [facility] Hx of cardiac pacemaker 2021, Viv, [employer] model#L331, one lead model #7841, second lead guidant model #4471; f/u Dr. Elizondo, [facility] Medical Past Anesthesia History No Family Hx of Anesthesia Complications and Other ("required epinephrine d/t difficulty breathing post-op with tubal ligation 1984") History of PONV No Hx of PONV and No Hx of Motion Sickness Social History Smoking Status: Never smoker Do You Dip or Chew Tobacco: No Hx Alcohol Use: Yes alcohol intake frequency: holidays/special occasions only Hx Substance Use: No substance use type: does not use Substance Use Type Other:: None Review of Systems Patient denies chest pain, shortness of breath, dyspnea on exertion, snoring, witnessed apneas, fever, chills, cough, wheezing, or palpitations. Physical Exam Vital Signs Vitals BP 104/70 P 61 TEMP 98.6 SP02 98% on RA RESP 17 Physical Full cervical extension range of motion without pain TMD 3.5 finger breadths Mallampati Score 2 Dentition: intact, implants front upper teeth; bridge right upper side, several crowns throughout; denies chipped or loose teeth Lungs: normal respiratory effort. Clear throughout to auscultation, no adventitious breath sounds Cardiac: regular rate and rhythm, no murmurs noted Carotid arteries: negative bruit bilat Lab Results Anesthesia Preop Results Results Anesthesia Widget: 2 WBC 5.79 K/ul (4.8-10.8) 03/18/22 Hgb 11.9 g/dl (12.0-16.0) L 03/18/22 Hct 36.7 % (34.1-44.9) 03/18/22 Plt 206 K/uL (130-400) 03/18/22 Na 139 mmol/L (136-145) 03/18/22 K 4.1 mmol/L (3.5-5.1) 03/18/22 Cl 106 mmol/L (98-107) 03/18/22 CO2 26 mmol/L (21-32) 03/18/22 BUN 16 mg/dl (6-23) 03/18/22 Creat 0.85 mg/dl (0.6-1.2) 03/18/22 Glucose Level 92 mg/dl (70-99(Fasting)) 03/18/22 PT 10.9 Seconds (9.0-12.0) 03/18/22 PTT 26.6 Seconds (21.0-31.0) 03/18/22 INR 1.0 (0.9-1.1) 03/18/22 Blood Type A Positive 03/18/22 Antibody Screen NEGATIVE 03/18/22 Testing Electrocardiogram Date: 10/04/21 AV dual paced rhythm, rate 74 bpm Chest X-Ray Date: 03/19/22 Left subclavian pacer is in place. There is a prosthetic cardiac valve. Lung volumes are normal. No consolidation to suggest pneumonia. Linear right midlung density reflects atelectasis or scarring. There is no pneumothorax or pleural effusion. Cardiac size is normal. Mediastinal contours are normal. There is no evidence for pulmonary edema. IMPRESSION: No acute cardiopulmonary findings. Echocardiogram Date: 07/20/21 EF 75% Mild cLVH No LV wall motion abnormalities Mild LA dilation Bioprosthetic aortic valve with higher than expected gradient and no aortic regurgitation; higher than expected gradient likely related to high stroke volume Unable to estimate pulmonary artery pressure Stress Test Date: 08/08/21 Exercise MPHR 41% METS 2 Negative ETT for myocardial ischemia based on EKG criteria Brief episode of atrial flutter at rest and in recovery Cardiac Catheterization Date: 04/20/21 1. Mild nonobstructive coronary artery disease -20 to 30% mid LAD 20 to 30% proximal circumflex 2. Mildly elevated left and right-sided filling pressures. 3. Mild pulmonary hypertension Pt subsequently underwent TAVR 07/19/21. Other Testing Pacemaker report 01/10/22 [employer] Mode DDDR Percent pacing: RA 83%, RV 51% No alerts to display Chest CTA 04/28/21 1. Segmental pulmonary embolus within the posterior basal segment of the right lower lobe with associated right lower lobe pulmonary infarct and a small right pleural effusion. 2. No thoracic aortic dissection. 3. Extensive aortic valvular calcification. 4. Cardiomegaly. COVID-19 Risk Screen Screening Information COVID-19 Screen Date: 03/18/22 Exposure 21 Days Family/Household +COVID Last 21 Days: No Exposure 10 Days Any COVID Exposure Last 10 Days: No Symptoms Last 10 Days Experienced COVID Sx Last 10 Days: No + COVID 0-90 Days COVID + in Last 0-90 Days: No
--- NOTE | 2022-04-11 06:51 | History & Physical Report ---
Date of Service April 11, 2022 Assessment & Plan (1) Rotator cuff tear, right: We will proceed with a right reverse shoulder arthroplasty. Postoperatively she will be placed in a sling and kept overnight in the hospital for postoperative medical management. She plans to use energy physical therapy upon discharge. History of Present Illness Chief Complaint: Cuff tear arthropathy of the right shoulder. Primary Care Provider: NO PCP Kaylah is a pleasant 66-year-old female who has been dealing with chronic increasing right shoulder pain. 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 Her recently and she lives by herself. She is having trouble doing any activities away from her body or up overhead. MRI and clinical examination were diagnostic for massive chronic retracted rotator cuff tear. After failing conservative treatment, she has elected proceed with a right reverse shoulder arthroplasty. . Allergies Allergy/AdvReac Type Severity Reaction Status Date / Time acetone Allergy Mild whole body Verified 03/08/22 09:16 rash adhesive Allergy Mild RASH, Verified 03/08/22 09:16 BLISTERS FROM THICK TAPE,BANDAIDS clarithromycin Allergy Mild GI Verified 03/08/22 09:16 SYMPTOMS,BLACKED OUT,DIARRHEA phenol Allergy Mild whole body Verified 03/08/22 09:16 rash resorcinol Allergy Mild whole body Verified 03/08/22 09:16 rash Basic Fuchsin Allergy Mild whole body Uncoded 03/08/22 09:16 rash CHEAP METALS AdvReac Mild ITCH, rash Uncoded 03/18/22 11:17 Home Medications Medication Instructions Recorded Confirmed Type biotin 5,000 mcg disintegrating 5,000 mcg PO QAM 05/26/18 03/08/22 History tablet multivitamin (Daily Multi-Vitamin 1 tab PO QAM 05/26/18 03/08/22 History tablet) fluoxetine 20 mg capsule (Prozac) 40 mg PO QAM 11/16/20 03/08/22 History lisinopril 10 mg tablet 10 mg PO BID 11/16/20 03/08/22 History omeprazole 20 mg tablet,delayed 20 mg PO QAM 11/16/20 03/08/22 History release oxybutynin chloride 5 mg tablet 5 mg PO QAM 04/28/21 03/08/22 History lidocaine 5 % topical patch 1 patch transdermal QAM PRN pain 04/30/21 03/08/22 Rx #1 ea tramadol 50 mg tablet 50 mg PO TID PRN pain #10 tabs 04/30/21 03/08/22 Rx amoxicillin 500 mg tablet 2,000 mg PO ONCE #4 tabs 06/21/21 03/08/22 Rx aspirin 81 mg tablet,delayed 81 mg PO QAM #90 tabs 07/13/21 03/08/22 Rx release (Adult Aspirin Regimen) ascorbic acid (vitamin C) 1,000 mg 1 g PO QAM 03/08/22 03/08/22 History tablet (Vitamin C) cyanocobalamin (vitamin B-12) 25 25 mcg PO QAM 03/08/22 03/08/22 History mcg tablet prednisone 1 mg tablet 4 mg PO QAM 03/08/22 03/08/22 History propranolol 120 mg capsule,24 120 mg PO QAM 03/08/22 03/08/22 History hr,extended release red yeast rice 600 mg tablet 1,200 mg PO QAM 03/08/22 03/08/22 History Past Med/Surg History Medical History Anxiety Bradycardia s/p pacemaker [employer] Cardiac murmur s/p TAVR 07/19/21 Depression Duodenal ulcer GERD (gastroesophageal reflux disease) controlled, stable per pt Hip problem hip abductor atrophy History of COVID-spring, 's office, not hosp; sore throat, cough>resolved Hypertension controlled, stable per pt Macular degeneration RT EYE (LIMITED VISION) Mild pulmonary hypertension s/p TAVR, unable to estimate pressures on most recent echo per report Prediabetes Pulmonary embolism 04/2021, admit to [place]; no longer on blood thinners Urinary urgency Surgical History H/O aortic valve replacement 2021, [facility], bovine valve; f/u dr. elizondo and dr mitchell, [facility] H/O gastric bypass History of anesthesia reaction DIFFICULTY BREATHING WITH TUBAL LIGATION-1984 "required epinephrine in recovery" pt unsure of cause/denies allergy or intubation; unsure if extended hospital stay. History of appendectomy History of bilateral breast reduction surgery History of bilateral tubal ligation History of bunionectomy RT/LEFT AND HAMMER TOE REPAIR History of cataract surgery rt/lt History of colonoscopy History of tooth extraction History of total knee replacement RT/LEFT Hx of aortic valve replacement Hx of cardiac catheterization 04/2021, "due to shortness of breath, referred by her PCP",[facility], no stents; f/u Dr. Elizondo, [facility] Hx of cardiac pacemaker 2021, [place], [employer] model#L331, one lead model #7841, second lead guidant model #4471; f/u Dr. Elziondo, [facility] Medical Family History Mother Family history of diabetes mellitus Father Family history of diabetes mellitus Sister Family history of diabetes mellitus Brother Family history of diabetes mellitus Grandmother Family history of diabetes mellitus Grandfather Family history of diabetes mellitus Social History Smoking Status: Never smoker Second Hand Exposure: No; Hx Alcohol Use: Yes Hx Substance Use: No Preferred Language: [place]ankan Communication Ability: Effective Agent Required: No Beliefs That Will Affect Care: None Current Living Situation: Alone Feels Safe at Home: Yes Assistive Devices: Cane and Glasses Review of Systems All systems reviewed & are unremarkable except as noted in HPI & below. Physical Exam On physical examination the right shoulder, she has about 20 degrees of forward elevation 20 degrees of abduction. She has weakness throughout.. Constitutional WD/WN, vitals as above Eyes PERRL, conjunctivae normal, anicteric sclerae ENMT external ear and nose normal, oropharynx normal Neck trachea midline, no thyromegaly Respiratory normal respiratory effort, lungs clear to auscultation Cardiovascular RRR, no murmur, no edema Gastrointestinal (Abdomen) normal bowel sounds, soft, nontender, no hepatosplenomegaly Skin no rashes, warm and dry Psychiatric A+Ox3, euthymic affect Results & Data Results & Data Laboratory Results . Diagnostic Findings X-rays of the right shoulder show minimal osteoarthritis. There is slight superior migration of the humeral head in the glenoid. MRI of the right shoulder shows a massive chronic retracted rotator cuff tear.. PG Care Time/CCT Total # of Minutes Spent Total Time Spent with Patient: Total time spent is greater than 50% in coordination of care (as documented) at patient's floor/unit and/or counseling patient: Coding Level of Care Code None Diagnoses Rotator cuff tear, right M75.101
[~2022-04-15 08:06] MED LIST changes: +ACETAMINOPHEN 500 MG TAB PO SCH; -ASPEC325 PO; +BUPIVACAINE 0.5 % 5 MG/1 ML PF 10ML VIAL ONE; +FAMOTIDINE 20 MG TAB PO SCH; -FLUO20CA35 PO; -FRRG PO; +GABAPENTIN 300 MG CAP PO SCH; -IRON PO; -LISI-461 PO; +LR 15ML/HR IV SCH; +LR 60ML/HR IV SCH; -MULT-506 PO; -MULT-580 PO; +ORTHO JOINT MIX INFIL SCH; -PRD/1 PO; -PRLSR20 PO; +TRANEXAMIC ACID 1,000 MG **IV Intra-op IV SCH; +TRANEXAMIC ACID 1,000 MG **IV Pre-op IV SCH; -VITAMIN B12 INJ; +ceFAZolin 2000MG 2,000 MG/15 ML SYR IV SCH; +dexAMETHasone 4 MG TAB PO SCH
[2022-04-15] MEDS ORDERED: fentaNYL citrate 100 MCG/2 ML VIAL ONE (08:41)
[2022-04-15] MEDS ORDERED: MIDAZOLAM HCL 1 MG/ML 2ML VIAL ONE (08:41)
--- NOTE | 2022-04-15 09:25 | History & Physical Bridge Note ---
Date of Service April 15, 2022 History & Physical Bridge Note I have examined the patient, reviewed the History & Physical and in the interval since the performance of the History & Physical I have noted the following changes of clinical significance: no changes noted
[2022-04-15] MEDS ORDERED: fentaNYL citrate 100 MCG/2 ML VIAL IV PRN (09:50)
[2022-04-15] MEDS ORDERED: ePHEDrine sulfate 50 MG/ML AMP IV PRN (09:50)
[2022-04-15] MEDS ORDERED: ATROPINE SULFATE 0.1 MG/ML 10ML SYR IV PRN (09:50)
[2022-04-15] MEDS ORDERED: ONDANSETRON INJ 2 MG/ML 2 ML VIAL IV PRN ×2 (09:50→14:08)
[2022-04-15] MEDS ORDERED: ORTHO JOINT ANESTHETIC ONE (09:58)
[2022-04-15] MEDS ORDERED: PROPOFOL IV EMULSION 10 MG/ML 20 ML VIAL IV ONE (10:59)
[2022-04-15] MEDS ORDERED: ONDANSETRON INJ 2 MG/ML 2 ML VIAL ONE (10:59)
[2022-04-15] MEDS ORDERED: PHENYLEPHRINE HCL 10 MG/ML VIAL ONE (10:59)
[2022-04-15] MEDS ORDERED: LIDOCAINE 2% MPF LOCAL 5 ML VIAL INFIL ONE (10:59)
[2022-04-15] MEDS ORDERED: DEXAMETHASONE SOD INJ 4 MG/ML VIAL ONE (10:59)
[2022-04-15] MEDS ORDERED: ePHEDrine sulfate 50 MG/ML SYR ONE (11:06)
--- NOTE | 2022-04-15 11:42 | Operative Report ---
PG Post Operative Report Pre & Post Diagnosis Operation Date: 04/15/22 10:30 Pre-Op Diagnosis: Right shoulder cuff tear arthropathy with tendinopathy long head of the biceps tendon Post-Op Diagnosis: Right shoulder cuff tear arthropathy with tendinopathy of the long head of the biceps tendon I identified the patient and participated in the time-out.: Yes Procedure Operation Date: 04/15/22 10:30 Actual Procedures p Right Reverse Total Shoulder Arthroplasty(Right) with open biceps tenodesis as a distinct and separate procedure (modifier 59)- Dov Martinez DO Surgeon Dov Martinez DO Manager [employer] Dov Huerta PA-C Estimated Blood Loss 150 Findings Consistent with Post-Op Diagnosis Specimens Right humeral head Description of Procedure A CPT code modifier 59: The long head of the biceps tendon was enlarged and inflamed consistent with tendinopathy. A tenodesis was opted. This was a separate and distinct portion of the procedure. For these reasons, a CPT code modifier 59 will be added to this case. Implants used: I used a [employer] Comprehensive reverse total shoulder arthroplasty system with a size 10 press fit micro humeral stem, a +6 offset humeral tray and a standard humeral bearing, a 25 mm small augment baseplate with a 6.5 mm central screw and superior and inferior locking screws, and a size 36 mm eccentric glenosphere. Kaylah arrived at [facility] for the above procedure. She was seen in the preoperative holding area and the operative extremity was identified and signed. She was given a preoperative antibiotic, TXA, and an interscalene nerve block. She was taken back to the operating room, laid on table in supine position, and put under general anesthesia. She was then put into the beachchair position. The shoulder was then prepped and draped in sterile fashion. A timeout was done and the patient and the operative extremity was pro perly identified. A deltopectoral approach was used. Dissection was taken down through the fascia and the deltoid was retracted laterally and the conjoined tendon was retracted medially. The anterior shoulder was exposed. The biceps groove was opened up and the biceps tendon was examined extensively. The biceps tendon demonstrated enlargement and inflammatory changes consistent with longstanding inflammation in the context of osteoarthritis and cuff arthropathy. The long head of the biceps tendon was then tenodesed to the upper border of the pectoralis major. This was a separate and distinct portion of the procedure. The subscapularis was then directly released off the lesser tuberosity with a peel technique. The inferior capsule was released and the humeral head was dislocated. A canal finding reamer was sent down the center of the humeral canal. Sequential reaming up to a size 10 reamer was done. Off that reamer, a proximal humeral resection guide was placed. The proximal humerus was resected at 135 of inclination and 25 of retroversion. Osteophytes were then removed and the glenoid was exposed. Time was spent doing a complete capsular and labral release. The glenoid guide was then placed in the inferior aspect of the glenoid. A 3.2 mm Steinmann pin was then placed into the glenoid vault at 10 of inclination. The glenoid baseplate was then reamed. The final size 25 mm small augment baseplate was then impacted in the place. A 6.5 mm central screw was then placed followed by superior and inferior locking screws. A 36 mm eccentric glenosphere was then impacted into place. Surrounding soft tissues were then injected with 100 cc an orthopedic pain control cocktail. The proximal humerus was then exposed. Sequential broaching of the humerus up to a size 10 broach was done. Off that broach a +6 offset humeral tray was trialed. The shoulder was then reduced, brought through a full range of motion, and felt to be stable. The shoulder was then dislocated and the broach was removed. The final size 10 micro press-fit humeral stem was then impacted into place. A standard humeral bearing was then snapped onto a +6 offset humeral tray. The humeral tray was then impacted onto the humeral stem. The shoulder was once again reduced, brought through a full range of motion, and felt to be stable. The subscapularis was retracted and not able to be repaired. A dilute betadyne lavage was then done for 3 minutes. The joint was then irrigated with normal saline solution. Hemostasis was obtained. The interval was closed with 2-0 Vicryl suture. The skin was then closed with 2-0 Vicryl and terry. A Silverlon dressing was placed and the arm was rested in a regular arm sling. She was then extubated and transferred to a hospital bed. She taken to the postanesthesia care unit in stable condition. She tolerated the procedure well. Dov Huerta PA-C, was present for the entire procedure. He was critical for patient positioning, prepping, draping, retraction exposure, wound closure and application of sterile dressing. I attest to the content of the Intraoperative Record and any orders documented therein. Any exceptions are noted below.
--- NOTE | 2022-04-15 12:39 | Anesthesiology Progress Note ---
Date of Service April 15, 2022 Anesthesia Post Procedure Vital Signs Vital Signs: Temp Pulse Pulse Resp BP BP Pulse Ox 04/15/22 12:35 97.5 F L 60 16 118/75 99 04/15/22 12:25 60 16 109/74 97 04/15/22 12:15 60 16 116/59 L 98 04/15/22 12:05 60 19 105/47 L 98 04/15/22 11:59 97.2 F L 60 14 128/62 98 04/15/22 08:45 98.6 F 62 20 135/70 96 O2 Del Method O2 Flow Rate 04/15/22 12:35 Oxymask 5 04/15/22 12:25 Oxymask 5 04/15/22 12:15 Oxymask 5 04/15/22 12:05 Oxymask 9 04/15/22 11:59 Oxymask 9 04/15/22 08:45 Room Air Pain Intensity Right Shoulder: Pain Intensity: 1 Transfer of Care Handoff Completed per policy Notes Mental Status: alert / awake / arousable and participated in evaluation Patient Amnestic to Procedure: Yes Nausea / Vomiting: adequately controlled Pain: adequately controlled Airway Patency, RR, SpO2: stable & adequate BP & HR: stable & adequate Hydration State: stable & adequate Anesthetic Complications: no major complications apparent and Pt Satisfied with anesthetic care
--- NOTE | 2022-04-15 12:44 | XRay Report ---
XR shoulder RT min 2V routine HISTORY: 66 years-old Female Post shoulder surgery right shoulder total joint arthroplasty COMPARISON: Chest radiograph 03/18/2022 TECHNIQUE: 2 views of the right shoulder. FINDINGS: Reverse right shoulder total joint arthroplasty with overlying skin terry. Satisfactory alignment w ithout acute fracture or unexpected opaque foreign body. Hypoinflation lungs. IMPRESSION: Reverse right shoulder total joint arthroplasty with expected postoperative changes. ACT 112: Negative or not required by law. The above report was generated using voice recognition software. It may contain grammatical, syntax o r spelling errors. Electronically signed by: Kalpesh Fonseca M.D. 04/15/2022 12:43 PM
--- NOTE | 2022-04-15 14:06 | Communication Note ---
Date of Service: April 15, 2022 In PACU, the patient stated having trouble taking deep breaths. I spoke to the patient about the nerve block likely causing her symptoms. The patient's vital signs have been stable. I instructed the nurse to have the patient use an incentive spirometer during her hospital stay. The patient was otherwise stable to be discharged from the PACU.
[2022-04-15] MEDS ORDERED: METOCLOPRAMIDE HCL INJ 5 MG/ML 2 ML VIAL IV PRN (14:08)
[2022-04-15] MEDS ORDERED: oxyCODONE HCL IR 5 MG TAB (IMMEDIATE RELEASE) PO PRN (14:08)
[2022-04-15] MEDS ORDERED: bisacodyL 10 MG SUPP PR PRN (14:08)
[2022-04-15] MEDS ORDERED: HYDROmorphone INJ 0.5 MG/0.5 ML SYR IV PRN (14:08)
[2022-04-15] MEDS ORDERED: NALOXONE HCL 0.4 MG/1 ML VIAL/CARP IV PRN (14:08)
[2022-04-15] MEDS ORDERED: MAGNESIUM HYDROXIDE SUSP 30 ML UDC PO PRN (14:08)
[2022-04-15] MEDS: SODIUM CHLORIDE 0.9% 1000ML 1,000 ML IV SCH ×2 (14:39→23:36)
[2022-04-15] MEDS: ACETAMINOPHEN 500 MG TAB PO SCH ×2 (15:19→21:10)
[2022-04-15] MEDS: KETOROLAC TROMETHAMINE 15 MG/ML VIAL IV SCH ×2 (16:34→21:09)
[2022-04-15] MEDS: ceFAZolin 2000MG 2,000 MG/15 ML SYR IV SCH (18:17)
[2022-04-15] MEDS ORDERED: SENNA 8.6 MG TAB PO SCH (21:00)
[2022-04-15] MEDS: DOCUSATE SODIUM 100 MG CAP PO SCH (21:10)
[2022-04-15] MEDS: lisinopril 10 MG TAB PO SCH (21:10)
[2022-04-16] MEDS: ceFAZolin 2000MG 2,000 MG/15 ML SYR IV SCH (02:02)
[2022-04-16] MEDS: KETOROLAC TROMETHAMINE 15 MG/ML VIAL IV SCH ×2 (05:13→10:23)
[2022-04-16] MEDS: ACETAMINOPHEN 500 MG TAB PO SCH (05:13)
--- NOTE | 2022-04-16 07:19 | Orthopedic Progress Note ---
Date of Service April 16, 2022 Assessment & Plan (1) Status post reverse total replacement of right shoulder: Overall she seems to be doing fairly well. She should be weaned off the oxygen today. As long as her saturations remain above 90% she can be discharged home. She will be seen by physical therapy today for ambulation and range of motion exercises. She can follow-up with orthopedics in 2 weeks as scheduled. Krystle Adrian was seen and examined at bedside this morning. Overall she is doing fairly well. She is not any much pain in the right shoulder. She has been up and ambulating to the bathroom. She is having a difficult time taking a deep breath. This is likely due to to the nerve block. She has been on 2 L of oxygen and has not been weaned down yet. Her oxygen saturations remained stable.. Review of Systems All systems reviewed & are unremarkable except as noted in HPI & below. Physical Exam On physical examination of the right shoulder, the dressing is clean and dry. She is wearing her sling as instructed. She does not have any active motion of her hand and her wrist secondary to the block.. Results & Data Results & Data Laboratory Results . Diagnostic Findings Postoperative x-rays of the right shoulder show the prosthesis to be in anatomic alignment without any evidence of fracture, screws, or loosening.. PG Care Time/CCT Total # of Minutes Spent Total Time Spent with Patient: Total time spent is greater than 50% in coordination of care (as documented) at patient's floor/unit and/or counseling patient: Coding Level of Care Code 24167 Post Operative Follow-Up Diagnoses Status post reverse total replacement of right shoulder Z96.611
--- NOTE | 2022-04-16 07:21 | Discharge Summary ---
Date of Service April 16, 2022 Admission HPI (Per Admitting) Kaylah is a pleasant 66-year-old female who has been dealing with chronic increasing right shoulder pain. 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 Her recently and she lives by herself. She is having trouble doing any activities away from her body or up overhead. MRI and clinical examination were diagnostic for massive chronic retracted rotator cuff tear. After failing conservative treatment, she has elected proceed with a right reverse shoulder arthroplasty. . Admission Exam (Per Admitting) On physical examination the right shoulder, she has about 20 degrees of forward elevation 20 degrees of abduction. She has weakness throughout.. Principal Diagnosis Same as "Discharge Diagnosis" noted below under Discharge Instructions. Discharge Exam On physical examination of the right shoulder, the dressing is clean and dry. She is wearing her sling as instructed. She does not have any active motion of her hand and her wrist secondary to the block.. Discharge Data Procedures Performed Operation Date: 04/15/22 10:30 Actual Procedures p Right Reverse Total Shoulder Arthroplasty(Right) - Dov Martinez DO Ordered Studies 04/15/22 05:00 US - OR guided needle placemen Routine Hospital Course (1) Status post reverse total replacement of right shoulder: On April 15, 2022 Livier arrived at [facility] and underwent a right reverse shoulder replaced without complication. She had a general anesthetic and a right interscalene nerve block. Postoperatively she was placed in a sling and transferred to the general orthopedic floors. Her hospital course was uneventful. On postop day #1 her vital signs were mostly stable. She was still on 2 L of oxygen in the morning. She was having trouble taking a deep breath due to the nerve block. Throughout the day her symptoms improved. She was weaned off the oxygen and stable for discharge to home. She was able to participate well with physical therapy. She was then discharged home. She will follow-up with orthopedics in 2 weeks. PG Care Time/CCT Total # of Minutes Spent Total Time Spent with Patient: Total time spent is greater than 50% in coordination of care (as documented) at patient's floor/unit and/or counseling patient: Discharge Plan Discharge Items Patient Disposition: Home - Home Health Services Reason For Visit: Right Shoulder DJD Discharge Diagnosis: Right reverse shoulder replacement Activity: Per Instructions section Non-emergency contact: Surgeon Call non-emergency contact if: your wound has increased redness and your wound has increased drainage Follow-up/Referrals: Michelle Bahena PA-C [Primary Care Provider] - Diet: Regular Addtl Attending Provider Instructions: Activity and Therapy Recommendations: * If you are using [facility] then therapy will be provided at your home until they feel you have accomplished all of your goals. * If you are using [facility] then Physical Therapy will be provided until they feel you are ready to start Outpatient Physical Therapy. * If you are not using home therapy then Outpatient Physical Therapy should start about 3-5 days from your day of surgery. Therapy will last about 8-12 weeks * Wear your sling for 3 weeks, unless otherwise instructed. You may remove your sling to shower and to dress, but otherwise, you should be in your sling at all times, including while sleeping * The shoulder replacement is very stable and you can use your hand while in the sling * You were shown a series of exercises in the hospital. Do these exercises daily including the exercises you were shown in physical therapy. Medications: * Narcotic You will likely be sent home from the hospital with a prescription for the narcotic pain medication that worked best throughout your stay. * Other medications may be prescribed for specific circumstances. If you have any questions, please call the office at . * Resume previous home medications unless otherwise instructed Dressing Care: Leave the Silverlon dressing in place for 7 days. After 7 days you may remove the dressing. If the incision is not draining then you may leave the terry open to air. If there is a little bit of drainage or if the terry are getting stuck on your clothing then cover the incision with a dry dressing. The terry will be removed at your 2 week follow-up appointment. Showering: You may shower with the Silverlon dressing in place. Do not let the shower spray hit the dressing directly. Pat the Silverlon dressing dry. If the dressing becomes wet underneath, then simply remove the dressing. Keep the incision dry until you are 7 days out from the day of surgery. After 7 days you may remove the Silverlon dressing and shower with the terry exposed. Let soapy water run over the terry and pat them dry. Do not scrub or soak the incision. Things To Watch For: * Drainage from the incision site that occurs more than one week after your surgery. * Increased redness at the incision site. * Fever above 102 degrees Fahrenheit. * Unusual chest pain or shortness of breath. * Call [facility] at with any of the above problems Follow-Up Visit: Follow-up with Dr. Martinez's PA (Dov Huerta) 2-3 weeks after your day of surgery. He will remove your terry and answer any questions. If you have any additional questions or concerns, Dr Martinez is usually in the office at the same time and will be available An appointment was probably scheduled when you signed-up for surgery in the office. If you have any questions call More detailed instructions as well as Frequently Asked Questions were provided in a folder by our office when you signed-up for surgery. Please review these instructions when you get home. If you have any further questions or concerns, please feel free to call the office at [phone] Pending Studies at Discharge: No Stand-Alone Forms: My [facility] Medications and DC Order Prescriptions: New oxycodone-acetaminophen 5-325 mg tablet 1 tab PO Q6H PRN (Reason: pain) Qty: 30 0RF Continued amoxicillin 500 mg tablet 2,000 mg PO ONCE Qty: 4 2RF Rx Instructions: TAKE 4 TABLETS ONE HOUR PRIOR TO DENTAL WORK aspirin [Adult Aspirin Regimen] 81 mg tablet,delayed release (DR/EC) 81 mg PO QAM Qty: 90 3RF fluoxetine [Prozac] 20 mg capsule 40 mg PO QAM omeprazole 20 mg tablet,delayed release (DR/EC) 20 mg PO QAM multivitamin [Daily Multi-Vitamin] Tablet 1 tab PO QAM biotin 5,000 mcg Tablet,Disintegrating 5,000 mcg PO QAM lisinopril 10 mg tablet 10 mg PO BID oxybutynin chloride 5 mg tablet 5 mg PO QAM tramadol 50 mg Tablet 50 mg PO TID PRN (Reason: pain) Qty: 10 0RF Rx Instructions: Can take with Tylenol. Avoid ibuprofen, Motrin, Aleve, naproxen, and other NSAIDs. lidocaine 5 % Adhesive Patch,Medicated 1 patch transdermal QAM PRN (Reason: pain) Qty: 1 0RF Rx Instructions: Put over top of most painful area. Wear for 12 hours, then off for 12 hours. ascorbic acid (vitamin C) [Vitamin C] 1,000 mg Tablet 1 g PO QAM prednisone 1 mg Tablet 4 mg PO QAM Vitamin B-12 25 mcg Tablet 25 mcg PO QAM red yeast rice 600 mg Tablet 1,200 mg PO QAM Rx Instructions: give with meal/snack propranolol [Inderal LA] 120 mg capsule,extended release 24 hr 120 mg PO QAM Rx Instructions: Take 1 capsule by mouth daily Discharge Orders: Discharge Order (Routine); Ordered 04/16/22 Ordered By: Dov Martinez Admission Data Admit Date/Time: 04/15/22 12:01 Attending Provider: Dov Martinez Admit Provider: Dov Martinez Primary Care Provider: Michelle Bahena
[2022-04-16] MEDS ORDERED: dexAMETHasone 4 MG TAB PO SCH (08:00)
[2022-04-16] MEDS: DOCUSATE SODIUM 100 MG CAP PO SCH (08:55)
[2022-04-16] MEDS: lisinopril 10 MG TAB PO SCH (08:55)
[2022-04-16] MEDS: OXYBUTYNIN CHLORIDE 5 MG TAB PO SCH ×2 (08:55→09:01)
[2022-04-16] MEDS: PROPRANOLOL HCL 60 MG LA CAP PO SCH ×2 (08:56→10:28)
[2022-04-16] MEDS ORDERED: MULTIVITAMIN PO SCH (09:00)
[2022-04-16] MEDS ORDERED: PANTOprazole 40 MG TAB PO SCH (09:00)
[2022-04-16] MEDS ORDERED: MULTIVITAMIN TAB PO SCH (09:00)
[2022-04-16] MEDS ORDERED: FLUoxetine HCL 20 MG CAP PO SCH (09:00)
== END 2022-04-16 13:13 | disposition home health service (06) ==
LOC: 3E 08:06 → ASU 08:06